=== PATIENT | female | born 1955 | race Caucasian/White ===

== ENCOUNTER → 2019-12-05 | Outpatient (REF) | payer BC ==
[2019-12-05 13:24] LABS: PLATELET COUNT, AUTOMATED 157 10^3/uL (150-450)
[2019-12-05 13:36] LABS: INR 0.99; PROTHROMBIN TIME 12.8 SECONDS (11.8-14.0)
[2019-12-05 13:37] LABS: PARTIAL THROMBOPLASTIN TIME 35.9 SECONDS (25.0-38.4)
== END ==
LOC: M LABDRAW1 12:41
PROVIDERS: ATTEND Physician Assistant
DX: M53.3 Sacrococcygeal disorders, not elsewhere classified (principal)

== ENCOUNTER → 2020-05-03 | Outpatient (CLI) | payer BC | LOC: M LABSMTC 12:06 | PROVIDERS: ATTEND Physical Medicine & Rehabilitation | DX: Z01.818 Encounter for other preprocedural examination (principal); Z11.59 Encounter for screening for other viral diseases; Z03.818 Encounter for observation for suspected exposure to other biological agents ruled out ==

== ENCOUNTER → 2023-06-16 | Outpatient (CLI) | payer MEDICARE ==
[2023-06-16 15:56] LABS: HEMOGLOBIN A1c 5.4 % (4.0-6.0)
[2023-06-16 16:08] LABS: FOLATE > 24.00 NG/ML (>5.4); THYROID STIMULATING HORMONE 0.349 uIU/ML (0.55-4.78)
[2023-06-16 16:09] LABS: FREE T4 1.41 NG/DL (0.89-1.76); VITAMIN B12 LEVEL 1084 PG/ML (211-911)
== END ==
LOC: M PLALAB 13:37
PROVIDERS: ATTEND Psychiatry & Neurology Neurology
DX: E11.40 Type 2 diabetes mellitus with diabetic neuropathy, unspecified (principal); E53.8 Deficiency of other specified B group vitamins; E07.9 Disorder of thyroid, unspecified

== ENCOUNTER → 2023-07-01 | Outpatient (CLI) | payer MEDICARE ==
[2023-07-01 14:09] LABS: BLOOD UREA NITROGEN 11 MG/DL (9-23); CREATININE FOR GFR 0.87 MG/DL (0.55-1.30); GLOMERULAR FILTRATION RATE > 60.0 (>45)
== END ==
LOC: M PLALAB 11:19
PROVIDERS: ATTEND Psychiatry & Neurology Neurology
DX: I10 Essential (primary) hypertension (principal)